=== PATIENT | female | born 1965 | race Caucasian/White ===

== ENCOUNTER → 2019-12-25 15:58 | Outpatient (CLI) | payer MEDICARE, SELFPAY ==
--- NOTE | 2019-12-25 16:17 | RAD_ITS ---
STUDY: X-RAY CHEST REASON FOR EXAM: Female, 54 years old. COPD exacerbation. TECHNIQUE: PA and lateral views of the chest. COMPARISON: 12/18/2010. FINDINGS: There is increasing elevation of the right hemidiaphragm which now extends up to the level of the renal hilum. There are atelectatic changes at the right lung base. Lungs are otherwise clear. There is no demonstrated pleural abnormality. Normal size heart. Normal mediastinum and gregorio. Normal visualized pulmonary arteries. Normal visualized aortic arch and descending thoracic aorta. There are diffuse degenerative changes of the visualized thoracic spine. There is degenerative osteoarthritis of the bilateral shoulders. There is no demonstrated abnormality of the visualized soft tissue structures of the upper abdomen. RAD/Chest PA and Lateral IMPRESSION: Progressive elevation right hemidiaphragm with atelectasis. No acute cardiopulmonary disease. Electronically Signed: Gulshan Perez DO at 21:46 EDT Tel [phone], Service support ,
== END ==
PROVIDERS: PCP Family Medicine; Referring Provider Family Medicine; Visit Provider Family Medicine
DX: J44.1 Chronic obstructive pulmonary disease with (acute) exacerbation (principal)
CPT/HCPCS: 71046

== ENCOUNTER → 2020-01-18 14:21 | Outpatient (CLI) | payer MEDICARE, SELFPAY ==
[2020-01-18 17:58] LABS: Absolute Neutrophil Count 9.7 X10^3/uL (2.0-7.7); Basophil# 0.06 X10^3/uL; Basophil% 0.5 % (0-1); Eosinophil# 0.06 X10^3/uL; Eosinophils% 0.5 % (0-5); Hematocrit 42.9 % (37-47); Hemoglobin 12.7 g/dL (12.0-15.0); Mean Corp Hgb Conc 29.6 g/dL (32-36); Mean Corpuscular Hgb 28.1 pg (27.0-32.0); Mean Corpuscular Volume 94.9 fL (81-99); Mean Platelet Vol. 11.8 fl (6.2-12.0); Monocyte# 0.49 X10^3/uL; Monocyte% 4.3 % (0-10); NRBC Flagged by Analyzer 0 % (0-5); Neutrophil # 9.65 X10^3/uL (2.7-7.7); Neutrophil % 84.9 % (47-70); Platelet Count 233 K/mm3 (150-450); RBC Distribution Width CV 14.1 % (11.6-14.6); RBC Distribution Width SD 48.9 fl (35.1-43.9); Red Blood Count 4.52 M/mm3 (4.2-5.4); White Blood Count 11.4 K/mm3 (4.4-11.0)
[2020-01-18 18:27] LABS: ALB/GLOB Ratio 1.1 RATIO (0.9-2.4); AST(SGOT) 26 U/L (15-37); Alanine Aminotransfer ALT/SGPT 22 U/L (13-56); Albumin, Serum 3.6 g/dL (3.2-5.0); Alkaline Phosphatase 119 U/L (45-117); Anion Gap 7 (5-15); BUN 14 mg/dL (7-18); BUN/Creat Ratio 12.3 RATIO (10-20); Calcium,Total 8.2 mg/dL (8.5-10.1); Chloride 109 mmol/L (98-107); Cholesterol 184 mg/dL (200); Creatinine, Serum 1.14 mg/dL (0.55-1.02); EST Glomerular Filtration Rate 53 mL/min (>60); Est Glom Filt Rate - Afr Amer 64 mL/min (>60); Globulin 3.2 g/dL (2.2-4.2); Glucose 92 mg/dL (74-106); High Density Lipoprotein 66 mg/dL; Magnesium 2.5 mg/dL (1.6-2.6); Phosphorus 3.4 mg/dL (2.5-4.9); Potassium 4.3 mmol/L (3.5-5.1); Protein, Total 6.8 g/dL (6.4-8.2); Sodium Level 141 mmol/L (136-145); Thyroid Stim Hormone (TSH) 4.31 uIU/mL (0.358-3.74); Triglycerides 131 mg/dL; Very Low Density Lipoprotein 26 mg/dL (5-40)
[2020-01-19 08:25] LABS: Vitamin B12 447 pg/mL (211-911); Vitamin D,25 Hydroxy 37.5 ng/mL
[2020-01-19 09:21] LABS: T4 Free Direct 1.05 ng/dL (0.76-1.46)
[2020-01-24 04:07] LABS: Vitamin B1, Thiamine 192.7 nmol/L (66.5-200.0)
[2020-01-24 11:23] LABS: Anti-Thyroglobulin AB < 1.0 IU/mL (0.0-0.9); Thyroglobulin, Serum Qt. 121.5 ng/mL (1.5-38.5); Thyroid Peroxidase AB < 9 IU/mL (0-34)
== END ==
PROVIDERS: PCP Family Medicine; Referring Provider Family Medicine; Visit Provider Family Medicine
DX: R79.89 Other specified abnormal findings of blood chemistry (principal); M81.0 Age-related osteoporosis without current pathological fracture; G62.9 Polyneuropathy, unspecified; I48.91 Unspecified atrial fibrillation; I50.9 Heart failure, unspecified
CPT/HCPCS: 36415; 80053; 80061; 82306; 82607; 83735; 84100; 84425; 84432; 84439; 84443; 85025; 86376; 86800

== ENCOUNTER → 2020-02-06 14:03 | Outpatient (CLI) | payer MEDICARE, MEDICAID, SELFPAY ==
--- NOTE | 2020-02-06 14:06 | US_ITS ---
STUDY: THYROID ULTRASOUND REASON FOR EXAM: Female, 54 years old. Nodule TECHNIQUE: Ultrasound evaluation of the thyroid was performed with real-time and static caballero-scale imaging. COMPARISON: None. FINDINGS: RIGHT LOBE: The right lobe of the thyroid gland measures 4.8 x 2.1 x 1.7 cm. There is a heterogeneous echotexture. There are complex lower pole nodules measuring up to 11 mm. There is an upper pole cyst measuring 4 mm. LEFT LOBE: The left lobe of the thyroid gland measures 4.0 x 1.5 x 1.4 cm. There is a heterogeneous echotexture. There are heterogeneous upper pole nodules measuring 5 mm and 10 mm 5 mm. ISTHMUS: The isthmus measures 2.2 mm . The regional lymph nodes are normal. US/Thyroid IMPRESSION: Nodules are noted bilaterally of the thyroid. Electronically Signed: Viktor Torres DO at 23:53 EDT Tel [phone], Service support ,
== END ==
PROVIDERS: PCP Family Medicine; Referring Provider Family Medicine; Visit Provider Family Medicine
DX: E04.1 Nontoxic single thyroid nodule (principal); J44.9 Chronic obstructive pulmonary disease, unspecified
CPT/HCPCS: 76536

== ENCOUNTER → 2020-03-07 | Outpatient (CLI) | payer MEDICARE, MEDICAID, SELFPAY ==
--- NOTE | 2020-03-07 13:15 | ASPS_PTH ---
PATIENT: DANIELLE RAYMOND LOC: THIAGOMERGED WITH [facility] U#:[id number] AGE/SX: 54/F ROOM: RE03/07/[address]: Dr. Akash Wilkinson MD : 1965 BED: DIS: 03/07/2020 SPEC #: [id number] RECD: 03/07/20 15:02 STATUS: AURY RELiz #: [id number] NAOHMI: 03/07/20 13:[address]: Akash Wilkinson DEPT: CYTOLOGY RECD BY: Tammi Amato ENTERED: 03/08/20 07:25 SP TYPE: ASPIRATION OTHR DR: Dr. Jose Baldwin MD Tissues: Thyroid gland, NOS Procedures: Special Stain Group II Cytology Other HEADER OPERATION: Ultrasound-guided fine needle aspiration right thyroid PRE-OP DIAGNOSIS: Multinodular goiter E04.2 TISSUE SUBMITTED: Fine needle aspiration right thyroid (12 slides) DIAGNOSIS CYTOLOGY Right thyroid, ultrasound-guided FNA (smears): Consistent with benign colloid nodule. Adequate for evaluation. See comment. SJ:lionel 03/08/20 COMMENT Correlation with clinical, radiologic findings and appropriate follow up are necessary. CYTOLOGY STUDY Slides are reviewed. CYTOLOGY GROSS Received are 12 smears labeled with the patient's name and designated per the requisition as right thyroid. Submitted for staining. / lionel 03/08/20 TC:5 CPT: 52875
== END | disposition home or self-care (01) ==
LOC: LABSPEC 15:06
PROVIDERS: PCP Family Medicine; Visit Provider Surgery
DX: E04.2 Nontoxic multinodular goiter (principal)
CPT/HCPCS: 88161; 88313